=== PATIENT | male | born 1960 | race Caucasian/White ===

== ENCOUNTER 2023-02-14 10:47 | Inpatient (IN) | payer BC, SELFPAY ==
[2023-02-14] VITALS (10 sets, daily range): BP systolic 128–199; BP diastolic 72–113; PULSE 89–144; RESP 18–50; TEMP 36.4–39.6; O2SAT 92–98; BMI 31.6
--- NOTE | 2023-02-14 11:17 | RAD_ITS ---
INDICATION: dyspnea EXAMINATION/TECHNIQUE: X-RAY - XR Chest 1 View COMPARISON: No relevant prior comparison study available FINDINGS: LINES/DEVICES: None. LUNGS: No consolidation, edema or effusion. No pneumothorax. Mild elevation of the right hemidiaphragm. MEDIASTINUM AND CARDIOVASCULAR STRUCTURES: Cardiac silhouette not enlarged. Central airways and mediastinal contour are unremarkable. BONES AND SOFT TISSUES: Unremarkable. RAD/Chest 1 View (Portable) IMPRESSION: No radiographic evidence of acute cardiopulmonary disease. Electronically Signed: Ji Smith MD at 12:38 EDT ,
--- NOTE | 2023-02-14 11:17 | EKG12_ITS ---
Test Reason : SHORT OF BREATH Blood Pressure : / mmHG Vent. Rate : 117 BPM Atrial Rate : 117 BPM P-R Int : 176 ms QRS Dur : 092 ms QT Int : 318 ms P-R-T Axes : 031 055 -14 degrees QTc Int : 443 ms Sinus tachycardia Possible Left atrial enlargement Nonspecific ST abnormality Abnormal QRS-T angle, consider primary T wave abnormality Abnormal ECG Confirmed by ALEXIS RODRÍGUEZ, OC ([id number]), desk editor PAVEL MCKINNEY ([id number]) on 02/23/2023 6:57:26 AM Referred By: Confirmed By:BROOKE ESPINOZA MD
--- NOTE | 2023-02-14 11:19 | EDS_ITS ---
HPI History of Present Illness Chief Complaint: Shortness of Breath Detail of Chief Complaint: Fever, dysuria, chills Informant: patient Narrative Narrative: Patient presents the emergency department complaint of dysuria as well as frequency and hematuria that started yesterday. Patient had chills while at work yesterday. He was seen at urgent care today and diagnosed with a UTI and started on Bactrim of which he had 1 dose. Patient was then had a another store when he started having chills and feeling short of breath. brings him to the ER for evaluation. Patient does not have history of UTIs. He has had fever at home. He denies abdomen pain or back pain. He denies chest pain. He does feel somewhat short of breath. He has a slight cough but thinks it is because he has a dry mouth. Patient denies sick contacts. PFSH PFS Home Medications atorvastatin 40 mg tablet 40 mg PO QHS 03/23/15 [History Last Taken Unknown] citalopram 20 mg tablet 20 mg PO DAILY 03/23/15 [History Last Taken Unknown] donepezil 10 mg tablet (Aricept) 10 mg PO DAILY 03/23/15 [History Last Taken Unknown] esomeprazole magnesium 40 mg capsule,delayed release 40 mg PO DAILY 03/23/15 [History Last Taken Unknown] ferrous sulfate 325 mg (65 mg iron) tablet 325 mg PO DAILY@0800 03/23/15 [History Last Taken Unknown] levetiracetam 500 mg tablet 500 mg PO BID 03/23/15 [History Last Taken Unknown] lisinopril 10 mg tablet 10 mg PO DAILY 03/23/15 [History Last Taken Unknown] metformin 500 mg tablet 500 mg PO BIDCM 03/23/15 [History Last Taken Unknown] metoprolol succinate 25 mg tablet,extended release 24 hr 37.5 mg PO DAILY 03/23/15 [History Last Taken Unknown] multivitamin with folic acid 400 mcg tablet (Thera) 1 tab PO DAILY 03/23/15 [History Last Taken Unknown] niacin 1,000 mg tablet,extended release 24 hr 1,000 mg PO QHS 03/23/15 [History Last Taken Unknown] sitagliptin phosphate 50 mg tablet (Januvia) 50 mg PO DAILY 03/23/15 [History Last Taken Unknown] Allergy/AdvReac Type Severity Reaction Status Date / Time No Known Allergies Allergy Verified 02/14/23 10:49 Social History Smoking Status: Never smoker ROS ROS ED Review of Systems ROS Unobtainable: other Constitutional Constitutional ED: Reports chills, fever(s) and lethargy; Denies sweats or weight loss Eyes Eyes: Denies blurry vision, change in vision or diplopia ENT ENT ED: Denies rhinorrhea or sore throat Cardiovascular Cardiovascular: Denies chest pain, orthopnea or racing heartbeat Respiratory/Chest Respiratory/Chest: Reports cough and dyspnea; Denies dyspnea on exertion, orthopnea or sputum Gastrointestinal Gastrointestinal: Denies abdominal pain, diarrhea, nausea or vomiting Genitourinary Genitourinary ED: Denies dysuria, hematuria or urinary frequency Musculoskeletal Musculoskeletal: Denies arthralgias, back pain, myalgias or neck pain Integumentary Denies abscess, Abrasions or rash Neurologic Neurologic: Denies headache(s) or weakness Psychiatric Psychiatric: Denies anxiety, depression or suicidal thoughts Endocrine Endocrinology: Denies polydipsia, polyphagia or polyuria Hematologic/Lymphatic Hematologic/Lymphatic: Denies easy bleeding, easy bruising or lymphadenopathy Allergic/Immunologic Allergic/Immunologic ED: Denies mouth swelling, tongue swelling or urticaria EXAM Physical Exam Const Vital Signs: 02/14/23 10:49 02/14/23 10:51 02/14/23 10:51 Temperature 100.5 F H 97.6 F L Temperature Source Temporal Temporal Pulse Rate 144 H 118 H Respiratory Rate 50 H 26 H Respiratory Effort Short of Breath Respiratory Depth Shallow Respiratory Pattern Hyperpnea Blood Pressure 163/113 H 199/102 H Blood Pressure Mean 129 134 Pulse Ox 98 97 Oxygen Delivery Method Room Air Room Air Room Air Positive well nourished and well developed General Appearance ED: well developed and NAD HEENT Reports TM's clear and moist mucous membranes normocephalic and atraumatic; Negative for trauma or tenderness Tympanic Membrane ED: Yes TM's clear Eyes PERRL and EOMs intact bilaterally General Eye ED: Negative for pale conjunctiva or scleral icterus Neck no lymphadenopathy, supple and no JVD General: Negative for tenderness Chest Wall inspection of chest normal and palpation of chest normal Chest: Negative for tenderness Resp normal respiratory effort and clear to auscultation bilaterally Effort and Inspection: Negative for respiratory distress or pain with movement Auscultation: Negative for rhonchi, wheezes or diminished lung sounds Cardio regular rhythm, S1 normal heart sound, S2 normal heart sound and no murmurs; Negative for regular rate Rate: tachycardic Peripheral Pulses: pulses 2+ throughout GI normal to inspection, nondistended, normoactive bowel sounds, soft to palpation, non-tender, non-distended and no masses Back/Spine no CVA tenderness and no thoracic nor lumbar tenderness Extremity normal to inspection General Extremety ED: Negative for edema General Extremity: Negative for edema Neuro oriented x3, CN's II-XII intact bilaterally, no sensory deficits noted and gait normal Sensorium / Orientation: awake, alert, oriented to person, oriented to place and oriented to time Motor Exam: strength 5/5 throughout and strength abnormal Psych mental status grossly normal Skin no rashes or lesions noted and no wounds MDM MDM MDM Narrative Medical decision making narrative: Patient presents with fevers and chills and rigors and diagnosed with UTI today at urgent care. Patient subsequently developed more chills and rigors and became short of breath. Patient without history of UTI. IV line established on arrival. In the differential would be urosepsis. Blood cultures ordered. Lab work-up obtained showed a white count of 6.1 with hemoglobin of 15.8 and platelet count of 173. Chemistries were unremarkable. BUN was 17 and creatinine 1.67. Positive for UTI with 500 cassette esterase and greater than 100 WBCs and +1 bacteria. Lactate elevated 9.5. COVID and flu testing was negative. This point recommended admission for IV hydration and IV antibiotics as I am concerned he may be developing urosepsis. Lab Data Attestation: I reviewed the patient's lab results. Labs: Laboratory Results - last 24 hr 02/14/23 02/14/23 11:12 11:32 WBC 6.1 RBC 5.82 Hgb 15.8 Hct 51.2 MCV 88.0 MCH 27.1 MCHC 30.9 L RDW Std Deviation 52.0 H RDW Coeff of Sandy 16.5 H Plt Count 173 MPV 10.7 Immature Gran % (Auto) 0.200 Neut % (Auto) 70.9 H Lymph % (Auto) 26.9 [place] % (Auto) 0.7 Eos % (Auto) 0.5 Baso % (Auto) 0.8 Absolute Neuts (auto) 4.4 Absolute Lymphs (auto) 1.65 Nucleated RBC % 0 Sodium 139 Potassium 3.3 L Chloride 102 Carbon Dioxide 23.0 Anion Gap 14 BUN 17 Creatinine 1.67 H Est GFR (MDRD) Af Amer 54 L Est GFR (MDRD) Non-Af 44 L BUN/Creatinine Ratio 10.2 Glucose 99 Lactic Acid 9.5 H* Calcium 8.7 Urine Color Yellow Urine Clarity Clear Urine pH 5.0 Ur Specific [place] 1.025 Urine Protein 100 H Urine Glucose (UA) Normal Urine Ketones 15 H Urine Occult Blood 250 H Urine Nitrite Negative Urine Bilirubin Negative Urine Urobilinogen 4 H Ur Leukocyte Esterase 500 H Urine RBC 10-25 SEEN Urine WBC >100 SEEN Ur Squamous Epith Cells 0 SEEN Urine Bacteria 1+ Urine Mucus 0 SEEN Radiography Diagnostic Testing: Clinical Impression(s) from Imaging Studies Chest X-Ray 02/14/23 11:17 IMPRESSION: No radiographic evidence of acute cardiopulmonary disease. Electronically Signed: Ji Smith MD at 12:38 EDT , 1 view chest x-ray obtained interpreted by myself as no evidence of infiltrate or pneumothorax or acute disease process. Radiology in agreement. EKG Initial EKG: Attestation: I personally reviewed and interpreted this EKG as follows: Comments: Sinus rhythm with a rate of [address] changes Discharge Plan Triage Chief Complaint: Shortness of Breath Other Complaint: Complaint ED Provider: Earlene Mcmahan Dx/Rx/DC Orders Clinical Impression: Sepsis, Acute UTI, Acidosis, lactic Prescriptions: No Action atorvastatin 40 MG tablet 40 mg PO QHS metformin 500 MG tablet 500 mg PO BIDCM niacin 1,000 MG tablet extended release 24 hr 1,000 mg PO QHS levetiracetam 500 MG tablet 500 mg PO BID donepezil [Aricept] 10 MG tablet 10 mg PO DAILY citalopram 20 MG tablet 20 mg PO DAILY ferrous sulfate 325 MG tablet 325 mg PO DAILY@0800 esomeprazole magnesium 40 MG capsule,delayed release(DR/EC) 40 mg PO DAILY lisinopril 10 MG tablet 10 mg PO DAILY metoprolol succinate 25 MG tablet 37.5 mg PO DAILY sitagliptin phosphate [Januvia] 50 MG tablet 50 mg PO DAILY multivitamin with folic acid [Thera] 1 TABLET tablet 1 tab PO DAILY Primary Care Provider: Care Physician,No Primary Referrals: Care Physician,No Primary [Primary Care Provider] - Disposition Disposition: Acute Care Hospital [facility]
[2023-02-14 11:26] LABS: Absolute Lymphocyte Count 1.65 X10^3/uL (0.83-4.51); Absolute Neutrophil Count 4.4 X10^3/uL (2.0-7.7); Basophil# 0.05 X10^3/uL; Basophil% 0.8 % (0-1); Eosinophil# 0.03 X10^3/uL; Eosinophils% 0.5 % (0-5); Hematocrit 51.2 % (40-54); Hemoglobin 15.8 g/dL (13.0-16.5); Lymphocyte # 1.65 X10^3/ul (0.83-4.51); Lymphocyte % 26.9 % (19-41); Mean Corp Hgb Conc 30.9 g/dL (32-36); Mean Corpuscular Hgb 27.1 pg (27.0-32.0); Mean Platelet Vol. 10.7 fl (6.2-12.0); Monocyte# 0.04 X10^3/uL; Monocyte% 0.7 % (0-10); NRBC Flagged by Analyzer 0 % (0-5); Neutrophil # 4.36 X10^3/uL (2.7-7.7); Neutrophil % 70.9 % (47-70); Platelet Count 173 K/mm3 (150-450); RBC Distribution Width CV 16.5 % (11.6-14.6); Red Blood Count 5.82 M/mm3 (4.6-6.2); White Blood Count 6.1 K/mm3 (4.4-11.0)
[2023-02-14 11:41] LABS: Mucous, Urine 0 SEEN /hpf (<or=2+); Squamous Epithelial Cells - UA 0 SEEN /hpf (0-5)
[2023-02-14] MEDS: 0.9% Normal Saline (1000mL) 1,000 ML 150 ML IV ×2 (11:43→17:12)
[2023-02-14 11:52] LABS: Anion Gap 14 (5-15); BUN 17 mg/dL (7-18); BUN/Creat Ratio 10.2 RATIO (10-20); Calcium,Total 8.7 mg/dL (8.5-10.1); Chloride 102 mmol/L (98-107); Creatinine, Serum 1.67 mg/dL (0.70-1.30); EST Glomerular Filtration Rate 44 mL/min (>60); Est Glom Filt Rate - Afr Amer 54 mL/min (>60); Glucose 99 mg/dL (74-106); Potassium 3.3 mmol/L (3.5-5.1); Sodium Level 139 mmol/L (136-145)
[2023-02-14 11:56] LABS: Color, Urine Yellow (Yellow); Glucose, Dipstick Normal (Normal); Ketone-Dipstick 15 mg/dl (Negative); Leukocyte Esterase-Dipstick 500 /ul (Negative); Nitrite-Dipstick Negative (Negative); Occult Blood-Urine 250 /ul (Negative); Protein-Dipstick 100 mg/dl (Negative); Specific Gravity, Urine 1.025 (1.002-1.030); Urine Bilirubin Dipstick Negative (Negative); Urine Clarity Clear (Clear); Urine Urobilinogen 4 mg/dl (Normal)
[2023-02-14 12:01] LABS: Lactic Acid 9.5 mmol/L (0.4-1.9)
[2023-02-14 12:45] LABS: Bacteria 1+ /hpf (None Seen); Red Blood Cells-Urine 10-25 SEEN /hpf (0-5); White Blood Cells >100 SEEN /hpf (0-5)
--- NOTE | 2023-02-14 13:20 | NURSING ---
DR ZAHIDA PINZON
--- NOTE | 2023-02-14 13:33 | PCM.HP.STD ---
HPI - General General Date of Admission: 02/14/23 Date of Service: 02/14/23 Chief Complaint: Dysuria, fast breathing HPI Narrative ZONIA MORRIS, is a 62 M with no known past medical history who presented to [facility] 02/14/2023 for fast breathing, fever and chills, dysuria and sweats for 1 day. This a.m. he went to urgent care and was diagnosed with a UTI and started on Bactrim, he took 1 dose however he was breathing fast at the store and was having shakes and chills so he presented to the hospital. In ED he was hypertensive with blood pressure of 199/102, tachypneic with respiratory rate of 26, heart rate 118 and temperature 100.5, he was started on IV fluids and given Rocephin and hospitalist contacted for admission. Patient seen at bedside with family member and he does endorse yesterday he started to have dysuria, frequency, chills and that today when he was in the store he started breathing quickly though did not necessarily feel short of breath. Has a bit of a head ache, aside from urinary complaints has no other physical complaints. Discussed med list and past medical history and he reports he takes no medicines, has not recently taken any medications and has no other medical problems that he knows of. [facility] Home Medications atorvastatin 40 mg tablet 40 mg PO QHS 03/23/15 [History Last Taken Unknown] citalopram 20 mg tablet 20 mg PO DAILY 03/23/15 [History Last Taken Unknown] donepezil 10 mg tablet (Aricept) 10 mg PO DAILY 03/23/15 [History Last Taken Unknown] esomeprazole magnesium 40 mg capsule,delayed release 40 mg PO DAILY 03/23/15 [History Last Taken Unknown] ferrous sulfate 325 mg (65 mg iron) tablet 325 mg PO DAILY@0800 03/23/15 [History Last Taken Unknown] levetiracetam 500 mg tablet 500 mg PO BID 03/23/15 [History Last Taken Unknown] lisinopril 10 mg tablet 10 mg PO DAILY 03/23/15 [History Last Taken Unknown] metformin 500 mg tablet 500 mg PO BIDCM 03/23/15 [History Last Taken Unknown] metoprolol succinate 25 mg tablet,extended release 24 hr 37.5 mg PO DAILY 03/23/15 [History Last Taken Unknown] multivitamin with folic acid 400 mcg tablet (Thera) 1 tab PO DAILY 03/23/15 [History Last Taken Unknown] niacin 1,000 mg tablet,extended release 24 hr 1,000 mg PO QHS 03/23/15 [History Last Taken Unknown] sitagliptin phosphate 50 mg tablet (Januvia) 50 mg PO DAILY 03/23/15 [History Last Taken Unknown] aspirin 81 mg capsule 81 mg PO DAILY 02/14/23 [History Last Taken 02/14/23] sulfamethoxazole 400 mg-trimethoprim 80 mg tablet (Bactrim) 2 tab PO BID 02/14/23 [History Last Taken Unknown] Allergy/AdvReac Type Severity Reaction Status Date / Time No Known Allergies Allergy Verified 02/14/23 10:49 Social History Smoking Status: Never smoker ROS ROS Narrative General: Has had fevers and chills HENT: Slight headache, denies stuffy nose, denies sore throat EYES: Chronic changes in vision Resp: Denies cough, has been breathing fast but not necessarily short of breath Cardiac: Denies chest pain GI: Denies abdominal pain, denies changes in bowel, denies nausea/vomiting : Urinary frequency, urgency, dysuria Extremity: Denies swelling MSK: Denies weakness Neuro: Denies any numbness/tingling Heme: Denies any bleeding or bruising Skin: Denies rashes Psychiatric: No complaints voiced Vital Signs Vital Signs Vital Signs: 02/14/23 10:49 02/14/23 10:51 02/14/23 10:51 Temperature 100.5 F H 97.6 F L Temperature Source Temporal Temporal Pulse Rate 144 H 118 H Respiratory Rate 50 H 26 H Respiratory Effort Short of Breath Respiratory Depth Shallow Respiratory Pattern Hyperpnea Blood Pressure 163/113 H 199/102 H Blood Pressure Mean 129 134 Pulse Ox 98 97 Oxygen Delivery Method Room Air Room Air Room Air 02/14/23 12:51 02/14/23 13:15 Temperature 97.6 F L 97.6 F L Temperature Source Temporal Pulse Rate 110 H 108 H Respiratory Rate 18 18 Respiratory Effort Respiratory Depth Respiratory Pattern Blood Pressure 128/78 H 128/78 H Blood Pressure Mean 94 94 Pulse Ox 94 95 Oxygen Delivery Method Room Air Physical Exam Narrative General: Alert, oriented, no apparent distress HEENT: Atraumatic, normocephalic Eyes: Anicteric, normal conjunctiva, extraocular movements grossly intact Neck: Supple Respiratory: Clear to auscultation bilaterally, normal respiratory effort Cardiovascular: Regular rhythm, mildly tachycardic GI: Soft, nontender, nondistended Extremities: No edema Musculoskeletal: Moving all extremities Neuro: No overt focal neurological deficits Skin: No rashes appreciated Psych: Cooperative Results Lab / Micro Data 02/14/23 11:12 02/14/23 11:12 Labs: Laboratory Results - last 24 hr 02/14/23 11:12: WBC 6.1, RBC 5.82, Hgb 15.8, Hct 51.2, MCV 88.0, MCH 27.1, MCHC 30.9 L, RDW Std Deviation 52.0 H, RDW Coeff of [place] 16.5 H, Plt Count 173, MPV 10.7, Immature Gran % (Auto) 0.200, Neut % (Auto) 70.9 H, Lymph % (Auto) 26.9, [place] % (Auto) 0.7, Eos % (Auto) 0.5, Baso % (Auto) 0.8, Absolute Neuts (auto) 4.4, Absolute Lymphs (auto) 1.65, Nucleated RBC % 0, Sodium 139, Potassium 3.3 L, Chloride 102, Carbon Dioxide 23.0, Anion Gap 14, BUN 17, Creatinine 1.67 H, Est GFR (MDRD) Af Amer 54 L, Est GFR (MDRD) Non-Af 44 L, BUN/Creatinine Ratio 10.2, Glucose 99, Lactic Acid 9.5 H*, Calcium 8.7 02/14/23 11:32: Urine Color Yellow, Urine Clarity Clear, Urine pH 5.0, Ur Specific [place] 1.025, Urine Protein 100 H, Urine Glucose (UA) Normal, Urine Ketones 15 H, Urine Occult Blood 250 H, Urine Nitrite Negative, Urine Bilirubin Negative, Urine Urobilinogen 4 H, Ur Leukocyte Esterase 500 H, Urine RBC 10-25 SEEN, Urine WBC >100 SEEN, Ur Squamous Epith Cells 0 SEEN, Urine Bacteria 1+, Urine Mucus 0 SEEN Micro: Microbiology 02/14/23 11:32 Nasal Secretion SARS-CoV-2 & FLU Antigen (Rapid) - Final Radiology Impression Chest X-Ray 02/14/23 11:17 IMPRESSION: No radiographic evidence of acute cardiopulmonary disease. Electronically Signed: Ji Smith MD at 12:38 EDT , Assessment & Plan Assessment/Plan (1) Acute UTI: (2) Acidosis, lactic: PLAN: Plan #Acute UTI, r/o sepsis -Patient with UA suggestive of UTI, lactic acid of 9.5, possible DAVE with creatinine of 1.67 but unclear baseline, patient was tachycardic and slightly tachypneic on presentation with a temperature of 100.5 -Patient only has one-point Torx at 3 criteria with his elevated kidney function and while other clinical indicators suggestive of sepsis does not technically meet criteria, will obtain liver panel as elevated bilirubin above the threshold would lead to qSOFA of 2 suggestive of abscess/life-threatening organ dysfunction -Urine and blood cultures pending -Fluid resuscitation, continue Rocephin #Lactic acid elevation -Lactic acid reportedly 9.5 on presentation -Suspect this is why patient was breathing quickly at the store as well as when he presented -Antibiotics and fluid resuscitation -Treat underlying etiology #DAVE versus CKD unclear subtype -As above, fluids, continue to monitor #Hypokalemia -Replaced #DVT ppx: Lovenox subcu Paula Carballo MD Time spent in the patient's overall evaluation,decision-making process, review of diagnostic data, adjustment of management, discussion with other providers, nursing nursing and ancillary staff involved in patient's care documentation, 56 minutes Charges/Coding Visit Charges Inpatient E&M: 16912 Init Hosp L2
--- NOTE | 2023-02-14 13:33 | NURSING ---
PCU TEAGUE UTI, SEPSIS, TACHYCARDIA
[2023-02-14] MEDS: Ceftriaxone 1 GM/50 ML BAG IV (13:47)
[2023-02-14 13:57] LABS: AST(SGOT) 21 U/L (15-37); Alanine Aminotransfer ALT/SGPT 27 U/L (16-61); Albumin, Serum 3.7 g/dL (3.2-5.0); Alkaline Phosphatase 166 U/L (45-117); Globulin 4.5 g/dL (2.2-4.2); Protein, Total 8.2 g/dL (6.4-8.2)
[2023-02-14] MEDS: 0.9% Normal Saline (1000mL) 1,000 ML 999 ML IV ×5 (14:34→22:58)
[2023-02-14] MEDS: Potassium Chloride Oral Tablet 20 MEQ 40 MEQ PO (14:34)
[2023-02-14 15:19] LABS: Reflex Lactate? Y
[2023-02-14 16:36] LABS: Magnesium 1.7 mg/dL (1.6-2.6)
[2023-02-14 16:50] LABS: Lactic Acid 2.8 mmol/L (0.4-1.9)
[2023-02-14] MEDS: Magnesium Sulfate 4gm/100mL 4 GM/100 ML IV.SOLN. IV (19:01)
[2023-02-14] MEDS: Acetaminophen 325 MG Tablet 650 MG PO (19:04)
[2023-02-14] MEDS: Ketorolac 30 MG/ML Syringe 15 MG IV (21:52)
[2023-02-15] VITALS (14 sets, daily range): BP systolic 147–171; BP diastolic 75–87; PULSE 74–105; RESP 18–20; TEMP 37–39.6; O2SAT 93–97; BMI 33.1
[2023-02-15] MEDS: 0.9% Normal Saline (1000mL) 1,000 ML 150 ML IV ×4 (01:41→22:36)
[2023-02-15] MEDS: Acetaminophen 325 MG Tablet 650 MG PO ×2 (05:12→14:39)
[2023-02-15 07:18] LABS: Absolute Neutrophil Count 14.9 X10^3/uL (2.0-7.7); Basophil# 0.04 X10^3/uL; Basophil% 0.3 % (0-1); Hematocrit 39.2 % (40-54); Hemoglobin 12.4 g/dL (13.0-16.5); Lymphocyte % 3.8 % (19-41); Mean Corp Hgb Conc 31.6 g/dL (32-36); Mean Corpuscular Hgb 27.4 pg (27.0-32.0); Mean Corpuscular Volume 86.7 fL (80-94); Mean Platelet Vol. 11.4 fl (6.2-12.0); Monocyte# 0.28 X10^3/uL; Monocyte% 1.8 % (0-10); NRBC Flagged by Analyzer 0 % (0-5); Neutrophil # 14.89 X10^3/uL (2.7-7.7); Neutrophil % 93.2 % (47-70); POSITIVE DIFFERENTIAL YES; Platelet Count 139 K/mm3 (150-450); RBC Distribution Width CV 16.4 % (11.6-14.6); Red Blood Count 4.52 M/mm3 (4.6-6.2)
[2023-02-15 07:47] LABS: Differential Indicated SCAN CRITERIA MET
[2023-02-15 07:58] LABS: ALB/GLOB Ratio 0.7 RATIO (0.9-2.4); AST(SGOT) 68 U/L (15-37); Alanine Aminotransfer ALT/SGPT 57 U/L (16-61); Albumin, Serum 2.3 g/dL (3.2-5.0); Alkaline Phosphatase 76 U/L (45-117); Anion Gap 6 (5-15); BUN 15 mg/dL (7-18); BUN/Creat Ratio 13.3 RATIO (10-20); Calcium,Total 7.2 mg/dL (8.5-10.1); Chloride 113 mmol/L (98-107); Creatinine, Serum 1.13 mg/dL (0.70-1.30); EST Glomerular Filtration Rate 69 mL/min (>60); Est Glom Filt Rate - Afr Amer 84 mL/min (>60); Estimated Creatinine Clearance 72.49 ml/min; Globulin 3.4 g/dL (2.2-4.2); Glucose 127 mg/dL (74-106); Potassium 4.1 mmol/L (3.5-5.1); Protein, Total 5.7 g/dL (6.4-8.2); Sodium Level 139 mmol/L (136-145); Thyroid Stim Hormone (TSH) 6.96 uIU/mL (0.358-3.74)
[2023-02-15 08:02] LABS: Differential Comment SCANNED
--- NOTE | 2023-02-15 09:22 | PN.HOSP_ITS ---
Subjective Subjective Feeling a bit better today, no issues overnight Objective Data Objective Data Vital Signs: Vital Signs Temp Pulse Resp BP Pulse Ox O2 Del Method 100.7 F H 85 20 H 151/87 H 93 Room Air 02/15/23 07:31 02/15/23 07:31 02/15/23 07:31 02/15/23 07:31 02/15/23 07:31 02/15/23 07:31 Oxygen Delivery Method Room Air Weight: 244 lb 14.937 oz Body Mass Index (BMI) 33.1 Intake & Output: Intake and Output for Last 24 Hours 02/14/23 02/15/23 02/16/23 04:59 03:59 03:59 Intake Total 1999 Balance 1999 Lab / Micro Data 02/15/23 06:45 02/15/23 06:45 Labs: Laboratory Results - last 24 hr 02/14/23 11:12: WBC 6.1, RBC 5.82, Hgb 15.8, Hct 51.2, MCV 88.0, MCH 27.1, MCHC 30.9 L, RDW Std Deviation 52.0 H, RDW Coeff of [place] 16.5 H, Plt Count 173, MPV 10.7, Immature Gran % (Auto) 0.200, Neut % (Auto) 70.9 H, Lymph % (Auto) 26.9, [place] % (Auto) 0.7, Eos % (Auto) 0.5, Baso % (Auto) 0.8, Absolute Neuts (auto) 4.4, Absolute Lymphs (auto) 1.65, Nucleated RBC % 0, Sodium 139, Potassium 3.3 L , Chloride 102, Carbon Dioxide 23.0, Anion Gap 14, BUN 17, Creatinine 1.67 H, Est GFR (MDRD) Af Amer 54 L, Est GFR (MDRD) Non-Af 44 L, BUN/Creatinine Ratio 10.2, Glucose 99, Lactic Acid 9.5 H*, Calcium 8.7, Total Bilirubin 1.50 H, Direct Bilirubin 0.50 H, AST 21, ALT 27, Alkaline Phosphatase 166 H, Total Protein 8.2, Albumin 3.7, Globulin 4.5 H 02/14/23 11:32: Urine Color Yellow, Urine Clarity Clear, Urine pH 5.0, Ur Specific [place] 1.025, Urine Protein 100 H, Urine Glucose (UA) Normal, Urine Ketones 15 H, Urine Occult Blood 250 H, Urine Nitrite Negative, Urine Bilirubin Negative, Urine Urobilinogen 4 H, Ur Leukocyte Esterase 500 H, Urine RBC 10-25 SEEN, Urine WBC >100 SEEN, Ur Squamous Epith Cells 0 SEEN, Urine Bacteria 1+, Urine Mucus 0 SEEN 02/14/23 15:50: Lactic Acid 2.8 H*, Magnesium 1.7 02/15/23 06:45: WBC 16.0 H, RBC 4.52 L, Hgb 12.4 L, Hct 39.2 L, MCV 86.7, MCH 27.4, MCHC 31.6 L, RDW Std Deviation 52.0 H, RDW Coeff of [place] 16.4 H, Plt Count 139 L, MPV 11.4, Immature Gran % (Auto) 0.900, Neut % (Auto) 93.2 H, Lymph % (Auto) 3.8 L, [place] % (Auto) 1.8, Eos % (Auto) 0.0, Baso % (Auto) 0.3, Absolute Neuts (auto) 14.9 H, Absolute Lymphs (auto) 0.60 L, Nucleated RBC % 0, Differential Comment SCANNED, Sodium 139, Potassium 4.1, Chloride 113 H, Carbon Dioxide 20.0 L, Anion Gap 6, BUN 15, Creatinine 1.13, Estim Creat Clear Calc 72.49, Est GFR (MDRD) Af Amer 84, Est GFR (MDRD) Non-Af 69, BUN/Creatinine Ratio 13.3, Glucose 127 H, Calcium 7.2 L, Total Bilirubin 1.70 H, AST 68 H, ALT 57, Alkaline Phosphatase 76, Total Protein 5.7 L, Albumin 2.3 L, Globulin 3.4, Album in/Globulin Ratio 0.7 L, TSH 6.96 H Micro: Microbiology 02/14/23 11:32 Urine, Clean Catch Urine Culture - Preliminary Gram negative lito 02/14/23 11:32 Blood Culture (Wb) - Anticubital Right Blood Culture - Preliminary 02/14/23 11:32 Nasal Secretion SARS-CoV-2 & FLU Antigen (Rapid) - Final Radiography Diagnostic Testing: Radiology Impression Chest X-Ray 02/14/23 11:17 IMPRESSION: No radiographic evidence of acute cardiopulmonary disease. Electronically Signed: Ji Smith MD at 12:38 EDT , Physical Exam Narrative General: Alert, Oriented x3, Cooperative, No apparent distress HEENT: Atraumatic, PERRLA, EOMI, Normocephalic Oral: Moist Mucosa Neck: Supple, No JVD Lungs: Clear to auscultation, Normal air movement, No rhonchi, No wheeze, No rales Cardiovascular: Regular rate, Regular Rhythm, Normal S1, Normal S2, No murmurs Abdomen: Soft, Non Tender, Non-Distended, No Hepato-splenomegaly Extremities: No edema, Capillary Refill Less than 3 Seconds Skin: No rashes, No breakdown Musculoskeletal: No Tenderness to Palpation of Joints or Extremities Neurological: Cranial nerves II-XII grossly intact, Motor Exam 5/5 strength throughout, Sensory exam intact to light touch and pain Psych/Mental Status: Normal Affect, Appropriate Assessment & Plan Assessment/Plan (1) Acute UTI: (2) Acidosis, lactic: PLAN: Plan #Acute UTI, r/o sepsis with DAVE and lactic acidosis -Patient with UA suggestive of UTI, lactic acid of 9.5, DAVE with creatinine of 1.67 but unclear baseline, patient was tachycardic and slightly tachypneic on presentation with a temperature of 100.5 -Patient only has one-point Torx at 3 criteria with his elevated kidney function and while other clinical indicators suggestive of sepsis does not technically meet criteria, will obtain liver panel as elevated bilirubin above the threshold would lead to qSOFA of 2 suggestive of abscess/life-threatening organ dysfunction -Urine and blood cultures pending -Fluid resuscitation, continue Rocephin 02/15/2023: Does have a gram-negative lito in his urine as well as his blood, continue with IV antibiotics pending sensitivities. Renal function has normalized It does appear that he has a history of diabetes and hypertension but also looks like he is not taking any of his home medications DVT: Lovenox Charges/Coding Visit Charges Inpatient E&M: 92198 Subs Hosp L2
[2023-02-15] MEDS: Ceftriaxone 1 GM/50 ML BAG IV (09:47)
[2023-02-15] MEDS: Enoxaparin 40 MG/0.4 ML Syringe SC (09:48)
[2023-02-15] MEDS: hydrALAZINE 20 MG/ML Vial 10 MG IV (14:47)
[2023-02-15] MEDS: 0.9% Saline Lock 10 ML Syringe IV ×2 (14:47→22:37)
--- NOTE | 2023-02-15 17:12 | NURSING ---
Called patient's pharmacy and verified that patient's med list should only contain Bactrim that he had filled yesterday 02/14/23
[2023-02-16] VITALS (10 sets, daily range): BP systolic 140–198; BP diastolic 82–106; PULSE 81–106; RESP 18–24; TEMP 37.1–38.1; O2SAT 94–100; BMI 33.6
[2023-02-16] MEDS: 0.9% Normal Saline (1000mL) 1,000 ML 150 ML IV ×2 (04:57→13:28)
[2023-02-16 05:59] LABS: Absolute Lymphocyte Count 1.18 X10^3/uL (0.83-4.51); Absolute Neutrophil Count 6.6 X10^3/uL (2.0-7.7); Basophil# 0.03 X10^3/uL; Basophil% 0.4 % (0-1); Eosinophil# 0.07 X10^3/uL; Eosinophils% 0.8 % (0-5); Hematocrit 40.3 % (40-54); Hemoglobin 12.6 g/dL (13.0-16.5); Lymphocyte # 1.18 X10^3/ul (0.83-4.51); Lymphocyte % 14.2 % (19-41); Mean Corp Hgb Conc 31.3 g/dL (32-36); Mean Corpuscular Hgb 27.3 pg (27.0-32.0); Mean Corpuscular Volume 87.2 fL (80-94); Mean Platelet Vol. 11.6 fl (6.2-12.0); Monocyte# 0.34 X10^3/uL; Monocyte% 4.1 % (0-10); NRBC Flagged by Analyzer 0 % (0-5); Neutrophil # 6.63 X10^3/uL (2.7-7.7); Platelet Count 118 K/mm3 (150-450); RBC Distribution Width CV 16.7 % (11.6-14.6); RBC Distribution Width SD 53.6 fl (35.1-43.9); Red Blood Count 4.62 M/mm3 (4.6-6.2); White Blood Count 8.3 K/mm3 (4.4-11.0)
[2023-02-16 06:48] LABS: Anion Gap 7 (5-15); BUN 9 mg/dL (7-18); BUN/Creat Ratio 10.2 RATIO (10-20); Calcium,Total 7.5 mg/dL (8.5-10.1); Chloride 112 mmol/L (98-107); Creatinine, Serum 0.88 mg/dL (0.70-1.30); EST Glomerular Filtration Rate 92 mL/min (>60); Est Glom Filt Rate - Afr Amer 111 mL/min (>60); Estimated Creatinine Clearance 93.08 ml/min; Glucose 114 mg/dL (74-106); Sodium Level 138 mmol/L (136-145)
[2023-02-16] MEDS: Enoxaparin 40 MG/0.4 ML Syringe SC (09:58)
[2023-02-16] MEDS: Ceftriaxone 1 GM/50 ML BAG IV (09:58)
[2023-02-16] MEDS: amLODIPine 5 MG Tablet PO ×2 (09:58→18:01)
[2023-02-16] MEDS: hydrALAZINE 20 MG/ML Vial 10 MG IV (14:16)
--- NOTE | 2023-02-16 14:31 | PN.HOSP_ITS ---
Reason for Visit Reason for Visit: Diagnoses Acidosis, unspecified (02/14/23) Urinary tract infection, site not specified (02/14/23) Subjective Subjective Patient evaluated at bedside, said that overall he was feeling better than he was and denied any shortness of breath though appeared to be having slight increased work of breathing with some scattered wheezes, denies any burning on urination, flank pain, abdominal pain Objective Data Objective Data Vital Signs: Vital Signs Temp Pulse Resp BP Pulse Ox O2 Del Method 100.1 F H 90 20 H 198/106 H 100 Room Air 02/16/23 14:12 02/16/23 14:16 02/16/23 14:12 02/16/23 14:12 02/16/23 14:12 02/16/23 14:12 Oxygen Delivery Method Room Air Weight: 112.4 kg Body Mass Index (BMI) 33.6 Intake & Output: Intake and Output for Last 24 Hours 02/15/23 02/15/23 02/16/23 00:59 23:59 23:59 Intake Total 2742.5 / 2742.5 Balance 2742.5 / 2742.5 Lab / Micro Data 02/16/23 05:20 02/16/23 05:20 Labs: Laboratory Results - last 24 hr 02/16/23 05:20: WBC 8.3, RBC 4.62, Hgb 12.6 L, Hct 40.3, MCV 87.2, MCH 27.3, MCHC 31.3 L, RDW Std Deviation 53.6 H, RDW Coeff of Sandy 16.7 H, Plt Count 118 L, MPV 11.6, Immature Gran % (Auto) 0.500, Neut % (Auto) 80.0 H, Lymph % (Auto) 14.2 L, [place] % (Auto) 4.1, Eos % (Auto) 0.8, Baso % (Auto) 0.4, Absolute Neuts (auto) 6.6, Absolute Lymphs (auto) 1.18, Nucleated RBC % 0, Sodium 138, Potassium 4.0, Chloride 112 H, Carbon Dioxide 19.0 L, Anion Gap 7, BUN 9, Creatinine 0.88, Estim Creat Clear Calc 93.08, Est GFR (MDRD) Af Amer 111, Est GFR (MDRD) Non-Af 92, BUN/Creatinine Ratio 10.2, Glucose 114 H, Calcium 7.5 L Micro: Microbiology 02/14/23 11:32 Urine, Clean Catch Urine Culture - Final Escherichia coli 02/14/23 11:32 Blood Culture (Wb) - Anticubital Right Blood Culture - Preliminary Gram negative lito 02/14/23 11:12 Blood Culture (Wb) - Anticubital Left Blood Culture - Preliminary 02/14/23 11:32 Nasal Secretion SARS-CoV-2 & FLU Antigen (Rapid) - Final Physical Exam Narrative General: Alert, oriented, appears to have some increased work of breathing HEENT: Atraumatic, normocephalic Eyes: Anicteric, normal conjunctiva, extraocular movements grossly intact Neck: Supple Respiratory: Slight increased work of breathing, some scattered wheezes and slightly diminished at the bases Cardiovascular: Heart rate regular but roughly 100?1 05 GI: Soft, nontender, nondistended Extremities: No edema Musculoskeletal: Moving all extremities Neuro: No overt focal neurological deficits Skin: No rashes appreciated Psych: Cooperative Assessment & Plan Assessment/Plan (1) Acute UTI: (2) Acidosis, lactic: PLAN: Plan #Acute E. coli UTI with E. coli bacteremia -Patient with UA suggestive of UTI, lactic acid of 9.5, possible DAVE with creatinine of 1.67 but unclear baseline, patient was tachycardic and slightly tachypneic on presentation with a temperature of 100.5 -Patient only has one-point Torx at 3 criteria with his elevated kidney function and while other clinical indicators suggestive of sepsis does not technically meet criteria, will obtain liver panel as elevated bilirubin above the threshold would lead to qSOFA of 2 suggestive of abscess/life-threatening organ dysfunction -Urine and blood cultures pending -Fluid resuscitation, continue Rocephin -02/16: Patient growing pansensitive E. coli in urine and blood cultures growing gram-negative rods that have yet to speciate, patient had been improving but spiked temp yesterday and again today and was tachycardic and became diaphoretic as well as tachypneic, repeated blood culture, patient respiratory status as below, once improved and safe to lie flat we will need to consider CT scans to assess for any other nidus of infection, in the meantime will broaden to Zosyn. Patient given Tylenol #Tachycardia/tachypnea/hypertension -Patient had some increased work of breathing as well as elevated blood pressures and tachycardia -EKG with sinus tach, chest x-ray with mild bibasilar interstitial thickening of uncertain etiology -Suspect this is multifactorial, patient febrile again likely worsening tachycardia -Fluids stopped, also suspect component of fluid overload and suspect that is what we are seeing on the chest x-ray, BNP pending, patient up in weight, will give dose of Lasix, has as needed hydralazine and will increase amlodipine that was began today and work on lowering blood pressure -Can consider BiPAP if any further respiratory distress -Did have some wheezing, suspect cardiac wheeze but will give ipratropium nebs, held off on albuterol nebs given his tachycardia and suspect worsening his tachycardia would worsen respiratory status overall #Lactic acid elevation -Lactic acid reportedly 9.5 on presentation -Suspect this is why patient was breathing quickly at the store as well as when he presented -Antibiotics and fluid resuscitation -Treat underlying etiology -02/16: Head down trended, slightly up again today, suspect patient is actually fluid overloaded so fluids have been stopped and he will be given a dose of diuretics, lactic acid will reflex at 3-hour kiesha, repeat blood culture ordered and patient antibiotics changed to Zosyn #DAVE on admission?resolved -Creatinine 1.67, down trended to 0.88 with fluids and supportive care #Hypokalemia -Replaced #Thrombocytopenia -Likely due to underlying acute illness, continue to treat underlying infection #DVT ppx: Lovenox subcu Paula Carballo MD Time spent in the patient's overall evaluation,decision-making process, review of diagnostic data, adjustment of management, discussion with other providers, nursing nursing and ancillary staff involved in patient's care documentation, 51 minutes Charges/Coding Visit Charges Inpatient E&M: 10256 Subs Hosp L3
--- NOTE | 2023-02-16 15:00 | NURSING ---
Addendum entered by Nela Millard 02/16/23 19:31: Pt placed on 3L of oxygen with saturation reading of 93%. Original Note: Pt tachycardic, tachypneic, physician notified, new orders received.
--- NOTE | 2023-02-16 15:21 | EKG12_ITS ---
Test Reason : Blood Pressure : / mmHG Vent. Rate : 125 BPM Atrial Rate : 125 BPM P-R Int : 178 ms QRS Dur : 090 ms QT Int : 284 ms P-R-T Axes : 050 062 027 degrees QTc Int : 409 ms Sinus tachycardia Otherwise normal ECG When compared with ECG of 14-FEB-2023 11:08, MANUAL COMPARISON REQUIRED, DATA IS UNCONFIRMED Confirmed by ALEXIS RODRÍGUEZ, OC ([id number]), make up editor TENNILLE MIRELES ([id number]) on 02/23/2023 11:03:50 AM Referred By: MERA Confirmed By:BROOKE ESPINOZA MD
--- NOTE | 2023-02-16 15:35 | RAD_ITS ---
STUDY: X-RAY CHEST REASON FOR EXAM: Male, 62 years old. Respiratorty Distress -- portable TECHNIQUE: AP portable COMPARISON: [February 14, 2023 FINDINGS: Mild bibasilar interstitial thickening of uncertain etiology. No gross infiltration or pulmonary edema.. There is no demonstrated pleural abnormality. Normal size heart. Normal mediastinum and alexandra. Normal visualized pulmonary arteries. Normal visualized aortic arch and descending thoracic aorta. Normal visualized thoracic spine. Normal visualized ribs, clavicles, and shoulders. There is no demonstrated abnormality of the visualized soft tissue structures of the upper abdomen. RAD/Chest 1 View IMPRESSION: Mild bibasilar interstitial thickening of uncertain etiology Electronically Signed: Agusto Ponce MD at 16:56 EST ,
[2023-02-16] MEDS: Acetaminophen 325 MG Tablet 650 MG PO (15:40)
--- NOTE | 2023-02-16 15:50 | CASEMGMT ---
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 Pt voices understanding and consents to?assessment?at this time.? Pt resting in bed in no distress at this time.? @ bedside. Pt is A/O at this time and answers all questions appropriately.?? Care providers, pharmacy, and demographics verified/updated at this time. PCP: No PCP. Provided w/local PCP directory Specialists: none Preferred Pharmacy: [facility] Retail @ discharge. Insurance: Commercial Insurance Prescription Benefit:?yes Living Will/HPOA:?Pt does not currently have LW/HCPOA LNOK:[place] Living Arrangements: Lives w/ in one-story home w/basement w/ 3-4 steps to enter. Denies difficulty w/stairs. Independent w/ADL's. Works full-time. and pt share home mgnt tasks. Transportation:?Pt states drives self and states no transportation concerns at this time.? also drives. DME: ? Denies using any DME and denies needs.? No home O2. They did just purchase a BP cuff. HHC/SNF: No hx of either. No needs identified. Pt wishes to return home and states has no concerns with going home at time of discharge.?CM?to follow for home oxygen needs and any further discharge planning/needs.? Pt voices no further concerns/needs at this time.? Advised pt to ask for?CM?if any further questions/concerns/needs arise.? Voices understanding. PLAN:??Home Zan BSN?RN?CM
[2023-02-16 16:14] LABS: Lactic Acid 3.5 mmol/L (0.4-1.9)
[2023-02-16] MEDS: Piperacil/Tazobactam 4.5 GM in 0.9% Normal Saline (100mL MB+) 100 ML IV (17:39)
[2023-02-16] MEDS: Furosemide 20 MG/2 ML VIAL IV (18:01)
[2023-02-16 18:40] LABS: BNP,B-Type NATRIURETIC PEPTIDE 174.2 pg/mL (0-100)
--- NOTE | 2023-02-16 19:00 | NURSING ---
Pt complains of inability to urinate and feeling like his bladder is full, unable to stand up straight. Bladder scan indicates 850mL urine. Physician notified, order received for straight cath. Straight cath results, 1300mL of clear yellow urine.
[2023-02-16 19:09] LABS: Reflex Lactate? Y
[2023-02-16] MEDS: Ipratropium 0.5 MG/2.5 ML SOLUTION INHALATION (19:11)
[2023-02-16 20:48] LABS: AST(SGOT) 144 U/L (15-37); Alanine Aminotransfer ALT/SGPT 145 U/L (16-61); Alkaline Phosphatase 113 U/L (45-117); Anion Gap 5 (5-15); BUN 11 mg/dL (7-18); BUN/Creat Ratio 9.8 RATIO (10-20); Bilirubin, Direct 1.02 mg/dL (0.00-0.30); Calcium,Total 8.1 mg/dL (8.5-10.1); Chloride 107 mmol/L (98-107); Creatinine, Serum 1.12 mg/dL (0.70-1.30); EST Glomerular Filtration Rate 70 mL/min (>60); Est Glom Filt Rate - Afr Amer 85 mL/min (>60); Estimated Creatinine Clearance 73.13 ml/min; Globulin 4.3 g/dL (2.2-4.2); Glucose 112 mg/dL (74-106); Potassium 3.9 mmol/L (3.5-5.1); Protein, Total 7.3 g/dL (6.4-8.2); Sodium Level 136 mmol/L (136-145)
[2023-02-16] MEDS: Piperacil/Tazobactam 3.375 GM in 0.9% Normal Saline (50mL MB+) 50 ML IV (21:03)
[2023-02-16 21:18] LABS: Lactic Acid 1.5 mmol/L (0.4-1.9)
[2023-02-16] MEDS: Acetaminophen 500 MG Tablet PO (22:26)
[2023-02-17] VITALS (7 sets, daily range): BP systolic 132–163; BP diastolic 79–91; PULSE 61–75; RESP 16–20; TEMP 36.1–37.2; O2SAT 93–98; BMI 33.6
[2023-02-17] MEDS: Piperacil/Tazobactam 3.375 GM in 0.9% Normal Saline (50mL MB+) 50 ML IV (05:10)
[2023-02-17 06:06] LABS: Absolute Lymphocyte Count 1.19 X10^3/uL (0.83-4.51); Absolute Neutrophil Count 5.3 X10^3/uL (2.0-7.7); Basophil# 0.03 X10^3/uL; Basophil% 0.4 % (0-1); Eosinophil# 0.08 X10^3/uL; Eosinophils% 1.1 % (0-5); Hemoglobin 13.8 g/dL (13.0-16.5); Lymphocyte # 1.19 X10^3/ul (0.83-4.51); Lymphocyte % 16.1 % (19-41); Mean Corp Hgb Conc 32.1 g/dL (32-36); Mean Corpuscular Hgb 27.3 pg (27.0-32.0); Mean Platelet Vol. 10.9 fl (6.2-12.0); Monocyte# 0.75 X10^3/uL; Monocyte% 10.2 % (0-10); NRBC Flagged by Analyzer 0 % (0-5); Neutrophil # 5.31 X10^3/uL (2.7-7.7); Neutrophil % 71.9 % (47-70); Platelet Count 162 K/mm3 (150-450); RBC Distribution Width CV 17.1 % (11.6-14.6); RBC Distribution Width SD 52.4 fl (35.1-43.9); Red Blood Count 5.06 M/mm3 (4.6-6.2); White Blood Count 7.4 K/mm3 (4.4-11.0)
[2023-02-17 06:43] LABS: ALB/GLOB Ratio 0.6 RATIO (0.9-2.4); AST(SGOT) 89 U/L (15-37); Alanine Aminotransfer ALT/SGPT 114 U/L (16-61); Albumin, Serum 2.4 g/dL (3.2-5.0); Alkaline Phosphatase 98 U/L (45-117); Anion Gap 3 (5-15); BUN 13 mg/dL (7-18); Calcium,Total 7.9 mg/dL (8.5-10.1); Chloride 109 mmol/L (98-107); EST Glomerular Filtration Rate 80 mL/min (>60); Est Glom Filt Rate - Afr Amer 97 mL/min (>60); Estimated Creatinine Clearance 81.91 ml/min; Glucose 103 mg/dL (74-106); Potassium 3.7 mmol/L (3.5-5.1); Protein, Total 6.4 g/dL (6.4-8.2); Sodium Level 139 mmol/L (136-145)
[2023-02-17] MEDS: Ipratropium 0.5 MG/2.5 ML SOLUTION INHALATION ×2 (07:11→13:16)
[2023-02-17] MEDS: amLODIPine 10 MG Tablet PO (08:03)
[2023-02-17] MEDS: Enoxaparin 40 MG/0.4 ML Syringe SC (08:04)
[2023-02-17] MEDS: Acetaminophen 325 MG Tablet 650 MG PO (08:11)
--- NOTE | 2023-02-17 08:23 | PN.HOSP_ITS ---
Reason for Visit Reason for Visit: Diagnoses Acidosis, unspecified (02/14/23) Urinary tract infection, site not specified (02/14/23) Objective Data Objective Data Vital Signs: Vital Signs Temp Pulse Resp BP Pulse Ox O2 Del Method O2 Flow Rate 97.9 F 61 20 H 159/87 H 96 Room Air 1 02/17/23 08:00 02/17/23 08:00 02/17/23 08:00 02/17/23 08:00 02/17/23 08:00 02/17/23 08:00 02/17/23 07:12 Oxygen Flow Rate (L/min) 1 Oxygen Delivery Method Room Air Weight: 112.5 kg Body Mass Index (BMI) 33.6 Intake & Output: Intake and Output for Last 24 Hours 02/15/23 02/16/23 02/17/23 23:59 23:59 23:59 Intake Total 3512.5 / 3512.5 50 / 50 Output Total 3500 / 3500 450 / 450 Balance 12.5 / 12.5 -400 / -400 Lab / Micro Data 02/17/23 05:47 02/17/23 05:47 Labs: Laboratory Results - last 24 hr 02/16/23 05:20: B-Natriuretic Peptide 174.2 H 02/16/23 14:57: Lactic Acid 3.5 H* 02/16/23 20:18: Sodium 136, Potassium 3.9, Chloride 107, Carbon Dioxide 24.0, Anion Gap 5, BUN 11, Creatinine 1.12, Estim Creat Clear Calc 73.13, Est GFR (MDR D) Af Amer 85, Est GFR (MDRD) Non-Af 70, BUN/Creatinine Ratio 9.8 L, Glucose 112 H, Lactic Acid 1.5, Calcium 8.1 L, Total Bilirubin 1.50 H, Direct Bilirubin 1.02 H, AST 144 H, ALT 145 H, Alkaline Phosphatase 113, Total Protein 7.3, Albumin 3.0 L, Globulin 4.3 H 02/17/23 05:47: WBC 7.4, RBC 5.06, Hgb 13.8, Hct 43.0, MCV 85.0, MCH 27.3, MCHC 32.1, RDW Std Deviation 52.4 H, RDW Coeff of Sandy 17.1 H, Plt Count 162, MPV 10.9, Immature Gran % (Auto) 0.300, Neut % (Auto) 71.9 H, Lymph % (Auto) 16.1 L, [place] % (Auto) 10.2 H, Eos % (Auto) 1.1, Baso % (Auto) 0.4, Absolute Neuts (auto) 5.3, Absolute Lymphs (auto) 1.19, Nucleated RBC % 0, Sodium 139, Potassium 3.7, Chloride 109 H, Carbon Dioxide 27.0, Anion Gap 3 L, BUN 13, Creatinine 1.00, Estim Creat Clear Calc 81.91, Est GFR (MDRD) Af Amer 97, Est GFR (MDRD) Non-Af 80, BUN/Creatinine Ratio 13.0, Glucose 103, Calcium 7.9 L, Total Bilirubin 0.90, AST 89 H, ALT 114 H, Alkaline Phosphatase 98, Total Protein 6.4, Albumin 2.4 L, Globulin 4.0, Albumin/Globulin Ratio 0.6 L Micro: Microbiology 02/14/23 11:12 Blood Culture (Wb) - Anticubital Left Blood Culture - Preliminary 02/14/23 11:32 Urine, Clean Catch Urine Culture - Final Escherichia coli 02/14/23 11:32 Blood Culture (Wb) - Anticubital Right Blood Culture - Preliminary Gram negative lito 02/14/23 11:32 Nasal Secretion SARS-CoV-2 & FLU Antigen (Rapid) - Final Radiography Diagnostic Testing: Radiology Impression Chest X-Ray 02/16/23 15:35 IMPRESSION: Mild bibasilar interstitial thickening of uncertain etiology Electronically Signed: Agusto Ponce MD at 16:56 EST Reading Location ID and State: [facility] / [place] Tel , Service support , Assessment & Plan Assessment/Plan (1) Acute UTI: (2) Acidosis, lactic: PLAN: Plan #Acute E. coli UTI with E. coli bacteremia and urinary retention -Patient with UA suggestive of UTI, lactic acid of 9.5, possible DAVE with creatinine of 1.67 but unclear baseline, patient was tachycardic and slightly tachypneic on presentation with a temperature of 100.5 -Patient only has one-point Torx at 3 criteria with his elevated kidney function and while other clinical indicators suggestive of sepsis does not technically meet criteria, will obtain liver panel as elevated bilirubin above the threshold would lead to qSOFA of 2 suggestive of abscess/life-threatening organ dysfunction -Urine and blood cultures pending -Fluid resuscitation, continue Rocephin -02/16: Patient growing pansensitive E. coli in urine and blood cultures growing gram-negative rods that have yet to speciate, patient had been improving but spiked temp yesterday and again today and was tachycardic and became diaphoretic as well as tachypneic, repeated blood culture, patient respiratory status as below, once improved and safe to lie flat we will need to consider CT scans to assess for any other nidus of infection, in the meantime will broaden to Zosyn. Patient given Tylenol -02/17: Did have further fevers yesterday evening, has not this morning, on Zosyn, repeat blood cultures pending. Patient did end up having urinary retention and was retaining 1300 and was straight cathed x1, was rescanned several hours later and was retaining greater than 500 so Cota placed. Suspect this was large part of his diaphoresis, tachycardia, hypertension. If symptoms have improved after Cota placement and repeat blood cultures negative suspect this is the culprit and will continue Cota catheter and patient will need to follow-up with urology. We will start tamsulosin #Tachycardia/tachypnea/hypertension -Patient had some increased work of breathing as well as elevated blood pressures and tachycardia -EKG with sinus tach, chest x-ray with mild bibasilar interstitial thickening of uncertain etiology -Suspect this is multifactorial, patient febrile again likely worsening tachycardia -Fluids stopped, also suspect component of fluid overload and suspect that is w hat we are seeing on the chest x-ray, BNP pending, patient up in weight, will give dose of Lasix, has as needed hydralazine and will increase amlodipine that was began today and work on lowering blood pressure -Can consider BiPAP if any further respiratory distress -Did have some wheezing, suspect cardiac wheeze but will give ipratropium nebs, held off on albuterol nebs given his tachycardia and suspect worsening his tachycardia would worsen respiratory status overall -02/17: Got a dose of Lasix which should help respiratory status and other vital abnormalities resolved once patient was straight cath and subsequently required Cota placement. Continue increased dose of amlodipine #Lactic acid elevation -Lactic acid reportedly 9.5 on presentation -Suspect this is why patient was breathing quickly at the store as well as when he presented -Antibiotics and fluid resuscitation -Treat underlying etiology -02/16: Head down trended, slightly up again today, suspect patient is actually fluid overloaded so fluids have been stopped and he will be given a dose of diuretics, lactic acid will reflex at 3-hour kiesha, repeat blood culture ordered and patient antibiotics changed to Zosyn -02/17: Resolved after Cota placement. Fluids been stopped #DAVE on admission?resolved -Creatinine 1.67, down trended to 0.88 with fluids and supportive care -02/17: Stable #Hypokalemia -Replaced #Thrombocytopenia -Likely due to underlying acute illness, continue to treat underlying infection #DVT ppx: Lovenox subcu Paula Carballo MD Time spent in the patient's overall evaluation,decision-making process, review of diagnostic data, adjustment of management, discussion with other providers, nursing nursing and ancillary staff involved in patient's care documentation, 36 minutes Charges/Coding Visit Charges Inpatient E&M: 52063 Subs Hosp L2
[2023-02-17] MEDS: Tamsulosin HCl 0.4 MG Capsule PO (10:00)
--- NOTE | 2023-02-17 11:24 | CASEMGMT ---
Social Work Pt had informed admitting RN upon admission that he does not have LW/POA, and declined further information. AMADOR Dow
--- NOTE | 2023-02-17 14:12 | DS.PCM_ITS ---
Providers Date of Admission: 02/14/23 Date of Discharge: 02/17/23 Primary Care Physician: No Primary Care Phys Reason For Visit: UTI, bacteremia Diagnosis Discharge Diagnosis (1) Acute UTI: Status: Acute Code(s): N39.0 - Urinary tract infection, site not specified (2) Acidosis, lactic: Status: Acute Code(s): E87.20 - Acidosis, unspecified Plan #Acute E. coli UTI with E. coli bacteremia and urinary retention #Tachycardia/tachypnea- resolved #hypertension #Lactic acid elevation-resolved #DAVE on admission?resolved #Hypokalemia- resolved #Thrombocytopenia-resolved Medications at Discharge Home Medications aspirin 81 mg capsule 81 mg PO DAILY 02/14/23 amlodipine 10 mg tablet 10 mg PO DAILY 30 days #30 tabs 02/17/23 amoxicillin 875 mg-potassium clavulanate 125 mg tablet 1 tab PO BID 7 days #14 tabs 02/17/23 tamsulosin 0.4 mg capsule 0.4 mg PO DAILY@1730 30 days #30 caps 02/17/23 Hospital Course Summary of Care Provided Minutes Spent on Discharge: 35 Hospital Course: ZONIA MORRIS, is a 62 M with no known past medical history who presented to [facility] 02/14/2023 for fast breathing, fever and chills, dysuria and sweats for 1 day. Morning of admission he went to urgent care and was diagnosed with a UTI and started on Bactrim, he took 1 dose however he was breathing fast at the store and was having shakes and chills so he presented to the hospital. In ED he was hypertensive with blood pressure of 199/102, tachypneic with respiratory rate of 26, heart rate 118 and temperature 100.5, he was started on IV fluids and given Rocephin and hospitalist contacted for admission. Patient found to have gram-negative UTI and 2 out of 2 blood cultures also positive for gram-negative rods, improved with fluids and antibiotics and speciated to E. coli. Patient did continue to have elevated blood pressure so he was started on Norvasc. Multiple medications on home med list but patient indicated he is not supposed to take any of those medicines and is not taking any medications and these were discontinued on discharge. Patient was initially set for discharge 02/16/2023 however spiked another slight temper ature and became tachycardic and tachypneic and diaphoretic, his fluids were discontinued as he appeared to have a cardiac wheeze and seemed to have some fluid overload from his continuous IV fluids and repeat cultures obtained and EKG showed sinus tach. His antibiotics were broadened to Zosyn. Shortly thereafter patient was found to have urinary retention and was retaining 1300 and was straight cathed x1, was rescanned several hours later and was retaining greater than 500 so Cota placed. Suspect this was large part of his diaphoresis, tachycardia, hypertension as the diaphoresis and tachycardia as well as distress resolved after cath/Cota and hypertension did improve and patient had no more fevers. Given significant clinical improvement do not feel patient needs to wait for repeat cultures to result, these will be monitored and he will be called with any changes. Discussed risks and benefits of home versus staying in the hospital for culture results and patient would prefer to go home which is reasonable given his significant clinical improvement and newly discovered urinary retention that seem to be causing/contributing to his symptoms and is likely the culprit for his underlying UTI. Discharge instructions as followed: -You will be started on a blood pressure medicine, amlodipine. -You will be discharged on antibiotics for your urinary tract infection, Augmentin, 875 mg twice daily for 7 days. You will no longer take the Bactrim that you are prescribed urgent care -Please follow-up with Dr. Victoria the urology doctor upon discharge, you are being discharged for the Cota catheter so will be incredibly important that you do so. You have a follow-up appointment scheduled 02/23/2023 at 9:15 AM and will be incredibly important they go to this appointment. -You have been prescribed a medication called tamsulosin and it is advised that he take this daily -You have indicated you were not taking any other home medications/were not supposed to be so these have been discontinued from your medication list -Please call your primary care provider's office upon discharge to schedule a hospital follow up within 1 week. -If you do not have a primary care physician of list of local primary care physicians can be provided for you upon discharge. Please ask for this list prior to discharge -For any concerning signs or symptoms please call 911 or proceed to the nearest emergency department Physical Exam Narrative General: Alert, oriented, no apparent distress HEENT: Atraumatic, normocephalic Eyes: Anicteric, normal conjunctiva, extraocular movements grossly intact Neck: Supple Respiratory: Clear to auscultation bilaterally, normal respiratory effort Cardiovascular: Regular rate and rhythm GI: Soft, nontender, nondistended Extremities: No edema Musculoskeletal: Moving all extremities Neuro: No overt focal neurological deficits Skin: No rashes appreciated Psych: Cooperative Weight / BMI Weight Weight: 112.5 kg Body Mass Index (BMI) 33.6 ABG / Lab / Microbiology Data 02/17/23 05:47 02/17/23 05:47 Laboratory: Laboratory Results - last 24 hr 02/16/23 05:20: B-Natriuretic Peptide 174.2 H 02/16/23 14:57: Lactic Acid 3.5 H* 02/16/23 20:18: Sodium 136, Potassium 3.9, Chloride 107, Carbon Dioxide 24.0, Anion Gap 5, BUN 11, Creatinine 1.12, Estim Creat Clear Calc 73.13, Est GFR (MDRD) Af Amer 85, Est GFR (MDRD) Non-Af 70, BUN/Creatinine Ratio 9.8 L, Glucose 112 H, Lactic Acid 1.5, Calcium 8.1 L, Total Bilirubin 1.50 H, Direct Bilirubin 1.02 H, AST 144 H, ALT 145 H, Alkaline Phosphatase 113, Total Protein 7.3, Albumin 3.0 L, Globulin 4.3 H 02/17/23 05:47: WBC 7.4, RBC 5.06, Hgb 13.8, Hct 43.0, MCV 85.0, MCH 27.3, MCHC 32.1, RDW Std Deviation 52.4 H, RDW Coeff of Sandy 17.1 H, Plt Count 162, MPV 10.9, Immature Gran % (Auto) 0.300, Neut % (Auto) 71.9 H, Lymph % (Auto) 16.1 L, [place] % (Auto) 10.2 H, Eos % (Auto) 1.1, Baso % (Auto) 0.4, Absolute Neuts (auto) 5.3, Absolute Lymphs (auto) 1.19, Nucleated RBC % 0, Sodium 139, Potassium 3.7, Chloride 109 H, Carbon Dioxide 27.0, Anion Gap 3 L, BUN 13, Creatinine 1.00, Estim Creat Clear Calc 81.91, Est GFR (MDRD) Af Amer 97, Est GFR (MDRD) Non-Af 80, BUN/Creatinine Ratio 13.0, Glucose 103, Calcium 7.9 L, Total Bilirubin 0.90, AST 89 H, ALT 114 H, Alkaline Phosphatase 98, Total Protein 6.4, Albumin 2.4 L, Globulin 4.0, Albumin/Globulin Ratio 0.6 L Microbiology: Microbiology 02/14/23 11:12 Blood Culture (Wb) - Anticubital Left Blood Culture - Preliminary 02/14/23 11:32 Urine, Clean Catch Urine Culture - Final Escherichia coli 02/14/23 11:32 Blood Culture (Wb) - Anticubital Right Blood Culture - Preliminary Gram negative lito 02/14/23 11:32 Nasal Secretion SARS-CoV-2 & FLU Antigen (Rapid) - Final Radiography Diagnostic Testing: Radiology Impression Chest X-Ray 02/16/23 15:35 IMPRESSION: Mild bibasilar interstitial thickening of uncertain etiology Electronically Signed: Agusto Ponce MD at 16:56 EST Reading Location ID and State: [address] [place] [address] Tel , Service support , D/C Instructions Discharge Diet: No restrictions Meaningful Use Info Meaningful Use Diagnoses (Choose all that apply): None applicable Discharge Plan Admission Admit Date/Time: 02/14/23 13:32 Primary Reason for Your Visit: Urinary tract infection to the blood Attending Provider: Paula Carballo Primary Care Provider: Care Physician,No Primary Consulting Providers: Paula Carballo; Adin Montalvo Instructions Patient Instructions: Indwelling Urinary Catheter Dc, ED Cota Catheter, Care, ED Urinary Tract Infections in Men Additional Instructions / Restrictions: DISCHARGE INSTRUCTIONS PLEASE READ *Please take this with you to your next doctors appointment* -You will be started on a blood pressure medicine, amlodipine. -You will be discharged on antibiotics for your urinary tract infection, Augmentin, 875 mg twice daily for 7 days. You will no longer take the Bactrim that you are prescribed urgent care -Please follow-up with Dr. Victoria the urology doctor upon discharge, you are being discharged for the Cota catheter so will be incredibly important that you do so. You have a follow-up appointment scheduled 02/23/2023 at 9:15 AM and will be incredibly important they go to this appointment. -You have been prescribed a medication called tamsulosin and it is advised that he take this daily -You have indicated you were not taking any other home medications/were not supposed to be so these have been discontinued from your medication list -Please call your primary care provider's office upon discharge to schedule a hospital follow up within 1 week. -If you do not have a primary care physician of list of local primary care physicians can be provided for you upon discharge. Please ask for this list prior to discharge -For any concerning signs or symptoms please call 911 or proceed to the nearest emergency department Discharge Orders/Prescriptions Prescriptions: New tamsulosin 0.4 mg Capsule 0.4 mg PO DAILY@1730 30 Days Qty: 30 0RF amlodipine 10 mg Tablet 10 mg PO DAILY 30 Days Qty: 30 1RF amoxicillin-pot clavulanate 875-125 mg tablet 1 tab PO BID 7 Days Qty: 14 0RF Continued aspirin 81 mg capsule 81 mg PO DAILY Discontinued sulfamethoxazole-trimethoprim [Bactrim] 400-80 mg tablet 2 tab PO BID Patient Comments: 800MG-160MG BID Referrals / Follow Up: Brad Victoria MD [Med Staff - Active Staff] - 02/23/23 9:15 am Care Physician,No Primary [Primary Care Provider] - ( -If you do not have a primary care physician of list of local primary care physicians can be provided for you upon discharge. Please ask for this list nathan or to discharge ) Disposition Disposition (needs filled in before D/C Order can be placed): Home, Self Care Charges/Coding Visit Charges Inpatient E&M: 12208 Disch Hosp >30min
--- NOTE | 2023-02-17 14:58 | PHA.DC.MC.R ---
Pharmacy [facility] has performed discharge medication reconciliation and counseling for this patient. The patient's discharge medication list was reviewed for discrepancies and discrepancies were resolved. The patient was counseled on the following discharge medications and changes in medications for homegoing were reviewed. The Reason for Use, instructions for use, and potential side effects were reviewed for all new medications. The patient's questions regarding all of their medications were answered. 1. amlodipine 10 mg PO daily 2. amoxicillin/clavulanate 875 PO BID 3. tamsulosin 0.4 mg PO daily The patient was able to verbally demonstrate an understanding of their discharge medications. The patient was counselled on new medications by fixed wing aircraft flight mechanic Hunter. Medications at Discharge Home Medications aspirin 81 mg capsule 81 mg PO DAILY 02/14/23 amlodipine 10 mg tablet 10 mg PO DAILY 30 days #30 tabs 02/17/23 amoxicillin 875 mg-potassium clavulanate 125 mg tablet 1 tab PO BID 7 days #14 tabs 02/17/23 tamsulosin 0.4 mg capsule 0.4 mg PO DAILY@1730 30 days #30 caps 02/17/23
--- NOTE | 2023-02-17 16:24 | CASEMGMT ---
Patient has order for discharge. RN CM in to discuss needs at discharge. Patient and deny needs at discharge. Patient had no further questions or concerns.
== END 2023-02-17 17:33 | disposition home or self-care (01) | DRG 690 ==
LOC: ED 13:03 → PCU 13:41
PROVIDERS: Family Medicine; Admitting Provider Internal Medicine; Emergency Provider Emergency Medicine; Visit Provider Internal Medicine
DX: N39.0 Urinary tract infection, site not specified (principal); R78.81 Bacteremia; N17.9 Acute kidney failure, unspecified; E87.20 Acidosis, unspecified; E11.9 Type 2 diabetes mellitus without complications; I10 Essential (primary) hypertension; E87.6 Hypokalemia; B96.20 Unspecified Escherichia coli [E. coli] as the cause of diseases classified elsewhere; Z79.82 Long term (current) use of aspirin
CPT/HCPCS: 36415; 71045; 80048; 80053; 80076; 81001; 83605; 83735; 83880; 84443; 85025; 87040; 87077; 87086; 87088; 87186; 87428; 93005; 94640; 94762; 99285; J7030; A4216; J1940

== ENCOUNTER → 2023-03-16 | Outpatient (CLI) | payer BC, SELFPAY | END | disposition home or self-care (01) | LOC: LAB 15:04 | PROVIDERS: Referring Provider Urology; Visit Provider Urology | DX: Z12.5 Encounter for screening for malignant neoplasm of prostate (principal) | CPT/HCPCS: 36415; 84153; G0103 ==

== ENCOUNTER → 2023-05-18 | Outpatient (CLI) | payer BC, SELFPAY | END | disposition home or self-care (01) | LOC: LAB 15:59 | PROVIDERS: Referring Provider Urology; Visit Provider Urology | DX: R97.20 Elevated prostate specific antigen [PSA] (principal) | CPT/HCPCS: 36415; 84153 ==

== ENCOUNTER → 2023-06-08 | Outpatient (CLI) | payer BC, SELFPAY ==
--- NOTE | 2023-06-08 | IMM_PTH ---
PATHOLOGY RESULTS PATIENT: ZONIA MORRIS II LOC: [facility] U#:[id number] AGE/SX: 62/M ROOM: RE06/08/[address]: Dr. Brad Victoria MD : 1960 BED: DIS: 06/08/2023 SPEC #: [id number] RECD: 06/10/23 11:00 STATUS: SUKUMAR REQ #: [id number] JARAD: 06/08/23 00:[address]: Brad Victoria DEPT: IMMUNOHISTOCHEMISTRY RECD BY: Jenniefr Tobar ENTERED: 06/10/23 11:01 SP TYPE: IMMUNO OTHR DR: No Primary Care Phys Tissues: PROSTATE RIGHT PROSTATE RIGHT Procedures: 34BE12 (add) P40 (add) 34BE12 (initial) PHYSICIAN & INSTITUTION [place] [id number] SPECIMEN INFORMATION: Tissue Source: A - Right prostate, apex, C - Right prostate, base Clinical Info: Elevated PSA Specimen Number: [id number] A & C CPT code: 69033, 36565 x3 METHODOLOGY: Deparaffinized sections of prefer/formalin-fixed tissue or PAP/DQ stained slides are incubated with monoclonal/polyclonal antibodies/oligonucleotide probes. Localization is made via biotin free immunoperoxidase method. Appropriate controls are performed and reacted as expected. Results on target cell population are indicated in the following table: RESULTS: ANTIBODY / CLONE RESULT Block A P40 (BC28) positive 34BE12 (34BE12) positive Block C P40 (BC28) positive 34BE12 (34BE12) positive These tests were developed and their performance characteristics determined by [facility]. They may not have been cleared or approved by the U.S. Food and Drug Administration. The FDA has determined that such clearance or approval is not necessary. The above immunohistochemical/dualISH markers are ordered and reviewed by the Pathologist. INTERPRETATION: A. Right prostate, apex, core biopsy: Negative for malignancy. C. Right prostate, base, core biopsy: Focal high-grade prostatic intraepithelial neoplasia (HGPIN). RENEE:beny 06/12/2023
--- NOTE | 2023-06-08 13:00 | PROSBIL_PTH ---
PATHOLOGY RESULTS PATIENT: ZONIA MORRIS II LOC: [facility] U#:[id number] AGE/SX: 62/M ROOM: RE06/08/[address]: Dr. Brad Victoria MD : 1960 BED: DIS: 06/08/2023 SPEC #: [id number] RECD: 06/09/23 08:19 STATUS: SUKUMAR TRANG #: [id number] JARAD: 06/08/23 13:[address]: Brad Victoria DEPT: SURGICAL PATHOLOGY RECD BY: Helena Juárez ENTERED: 06/09/23 08:19 SP TYPE: PROST BX OT DR: No Primary Care Phys Tissues: PROSTATE RIGHT PROSTATE RIGHT PROSTATE RIGHT PROSTATE LEFT PROSTATE LEFT PROSTATE LEFT Procedures: PROSTATE BX HEADER OPERATION: Prostate biopsy PRE-OP DIAGNOSIS: Elevated PSA TISSUE SUBMITTED: A - Right apex, B - Right mid, C - Right base, D - Left apex, E - Left mid, F - Left base MICROSCOPIC DIAGNOSIS A. Right prostate, apex, core biopsy: Prostatic tissue predominantly consists of stromal tissue, negative for malignancy. See comment. B. Right prostate, mid, core biopsy: Prostatic tissue predominantly consists of stromal tissue, negative for malignancy. Chronic inflammation. C. Right prostate, base, core biopsy: Focal high-grade prostatic intraepithelial neoplasia (HGPIN). See comment. D. Left prostate, apex, core biopsy: Prostatic tissue, negative for malignancy.. E. Left prostate, mid, core biopsy: Prostatic tissue, negative for malignancy. Chronic inflammation. F. Left prostate, base, core biopsy: Prostatic tissue, negative for malignancy. SJ:rg 06/10/2023 COMMENT A & C. Immunohistochemistry ([id number]) supports the above diagnosis. MICROSCOPIC DESCRIPTION Slides are reviewed. GROSS DESCRIPTION A - Received is one container designated prostate, right apex. The specimen consists of two elongated fragments of light pelayo-white soft tissue measuring 0.7 and 1.0 cm in length and 0.1 cm in diameter. The specimen is totally submitted in one cassette. B - Received is one container designated prostate, right mid. The specimen consists of two elongated fragments of light pelayo-white soft tissue measuring 0.3 and 1.0 cm in length and 0.1 cm in diameter. The specimen is totally submitted in one cassette. C - Received is one container designated prostate, right base. The specimen consists of two elongated fragments of light pelayo-white soft tissue measuring 0.5 and 1.5 cm in length and 0.1 cm in diameter. The specimen is totally submitted in one cassette. D - Received is one container designated prostate, left apex. The specimen consists of two elongated fragments of light pelayo-white soft tissue each measuring 1.0 cm in length and 0.1 cm in diameter. The specimen is totally submitted in one cassette. E - Received is one container designated prostate, left mid. The specimen consists of two elongated fragments of light pelayo-white soft tissue each measuring 1.5 cm in length and 0.1 cm in diameter. The specimen is totally submitted in one cassette. F - Received is one container designated prostate, left base. The specimen consists of two elongated fragments of light pelayo-white soft tissue measuring 0.7 and 1.0 cm in length and 0.1 cm in diameter. The specimen is totally submitted in one cassette. / SJ:rg 06/09/2023 TC:5 CPT: 24067 x6
--- OUTSIDE RECORDS SUMMARY | 2023-06-09 00:15 | XMS RPT_ITS | CCD ---
Author Name Unknown Address [address] [place] [address] Organization [facility] Care Team Providers Care [place] Representative Name Role Phone LOS CHAVEZ Primary [facility] Unavailable Results Test Name Value Interpretation Reference Range Facil ity Encounters Encounter Date Encounter Type Care Provider Facility Start: 02-14-2023 End: 02-14-2023 ambulatory LOS CHAVEZ Facility:[facility] Payers Date Payer Category Payer Unknown [id number] Progress note 02-14-2023 Note Date & Type Note Facility 02-14-2023 Note HNO ID: [id number] Author: Myranda Sprague PA-C Service: ? Author Type: Physician Sales Operations Specialist Type: Progress Notes Filed: 02/14/2023 8:36 AM Note Text: This note was created using [email or web address]. Subjective Zonia Morris is a 62 year old male. HPI Presents with a chief complaint of urinary frequency, difficulty urinating, fever. He states he noticed the urinary symptoms 2 days ago. Yesterday noticed a low-grade fever. Today temp is 100.1. No vomiting. He has some low back pain. Denies any rectal pain. No history of prostatitis. Denies known history of BPH. Does not see a physician, states he has not seen a primary care in 15 to 20 years. No diarrhea. No abdominal pain. He has had blood in his urine today. Review of Systems Constitutional: Positive for fatigue and fever. HENT: Negative. Respiratory: Negative. Cardiovascular: Negative. Gastrointestinal: Negative. Genitourinary: Positive for difficulty urinating, dysuria, frequency, hematuria and urgency. Musculoskeletal: Positive for back pain. Skin: Negative. Hematological: Negative. Psychiatric/Behavioral: Negative. All other systems reviewed and are negative. PAST MEDICAL HISTORY Diagnosis Date NEGATIVE MEDICAL HISTORY Current Outpatient Medications Medication Sig Dispense Refill BABY ASPIRIN ORAL Take by mouth. sulfamethoxazole-trimethoprim (BACTRIM DS) 800-160 mg per tablet Take 1 tablet by mouth two times a day for 7 days. 14 tablet 0 methylPREDNISolone (MEDROL, ANGEL,) 4 mg Dose-Pack As Instructed per package. Hold NSAIDs while taking. (Patient not taking: Reported on 02/14/2023) 1 Package 0 No current facility-administered medications for this visit. PAST SURGICAL HISTORY Procedure Laterality Date RPR 1ST INGUN HRNA AGE 5 YRS/> REDUCIBLE Left VASECTOMY UNI/BI SPX W/POSTOP SEMEN EXAMS No family history on file. Social History Tobacco Use Smoking status: Never Smokeless tobacco: Never Substance Use Topics Alcohol use: No Drug use: No Objective BP 166/93 Pulse 88 Temp 37.8 ?C (100.1 ?F) Resp 18 Wt 107.5 kg (237 lb) SpO2 94% Physical Exam Vitals reviewed. Constitutional: Appearance: Normal appearance. HENT: Head: Normocephalic and atraumatic. Cardiovascular: Rate and Rhythm: Normal rate and regular rhythm. Heart sounds: Normal heart sounds. Pulmonary: Effort: Pulmonary effort is normal. Breath sounds: Normal breath sounds. Abdominal: General: Abdomen is flat. Bowel sounds are normal. There is no distension. Palpations: Abdomen is soft. Tenderness: There is no abdominal tenderness. There is no right CVA tenderness, left CVA tenderness or guarding. Skin: General: Skin is warm and dry. Neurological: Mental Status: He is alert. Assessment and Plan ASSESSMENT/PLAN: 1. Acute UTI - ICD9: 599.0, ICD10: N39.0 acute - UA positive for rhys esterase, hematuria, proteinuria, and nitrates - Send urine for culture - Begin treatment with Bactrim DS BID for 7 days - UA DIP, URINE (POC) - URINE CULTURE - CONSULT TO UROLOGY Myranda Sprague PA-C [facility] Summary Purpose Family History No Family History Records Found Advance Directives No Advanced Directives Records Found Additional Source Comments (unrecognized sect ion and content) No Status Records Found INFORMATION SOURCE (unrecogn ized section and content) FOR RECORDS PERTAINING TO PATIENTS WHO ARE OR HAVE BEEN ENROLLED IN A CHEMICAL DEPENDENCY/SUBSTANCEABUSE PROGRAM, SOME INFORMATION MAY BE OMITTED. This clinical summary was aggregated from multiple sources. Caution should be exercised in using it in the provision of clinical care. This summary normalizes information from multiple sources, and as a consequence, information in this document may materially change the coding, format and clinical context of patient data. In addition, data may be omitted in some cases. CLINICAL DECISIONS SHOULD BE BASED ON THE PRIMARY CLINICAL RECORDS. [facility] [employer] [facility]. provides no warranty or guarantee of the accuracy or completeness of information in this document.
== END | disposition home or self-care (01) ==
LOC: LABSPEC 16:54
PROVIDERS: Referring Provider Urology; Visit Provider Urology
DX: R97.20 Elevated prostate specific antigen [PSA] (principal)
CPT/HCPCS: 88305; 88341; 88342; G0416

== ENCOUNTER → 2023-12-21 | Outpatient (CLI) | payer BC, SELFPAY | END | disposition home or self-care (01) | LOC: LAB 15:58 | PROVIDERS: Referring Provider Urology; Visit Provider Urology | DX: N40.1 Benign prostatic hyperplasia with lower urinary tract symptoms (principal) | CPT/HCPCS: 36415; 84153 ==

== ENCOUNTER → 2024-06-20 | Outpatient (CLI) | payer BC, SELFPAY | END | disposition home or self-care (01) | LOC: LAB 14:46 | PROVIDERS: Referring Provider Nurse Practitioner; Visit Provider Nurse Practitioner | DX: R97.20 Elevated prostate specific antigen [PSA] (principal) | CPT/HCPCS: 36415; 84153 ==